=== PATIENT | male | born 1960 | race Caucasian/White ===

== ENCOUNTER 2020-02-18 08:28 | Emergency (ER) | payer MEDICAID ==
[~2020-02-18] VITALS: Ht 188 cm; Wt 70.3 kg
--- NOTE | 2020-02-18 08:35 | NUR ---
came in for lower back pain r/t L lower extremity. to ER bed 9, hooked to monitor. kept comfortable. Dr Galarza at bedside
[2020-02-18] MEDS ORDERED: HYDROCODONE/APAP 5/325MG TABLET ONE (08:52)
[2020-02-18] MEDS ORDERED: predniSONE 20 MG TABLET ONE (08:52)
[2020-02-18] MEDS ORDERED: HYDROCODONE/APAP 5/325MG TABLET PO ONE (09:00)
[2020-02-18] MEDS ORDERED: predniSONE 20 MG TABLET PO ONE (09:00)
--- NOTE | 2020-02-18 09:12 | NUR ---
cotton program technician at bedside
--- NOTE | 2020-02-18 09:33 | NUR ---
Patient discharged to home in stable condition. Written and verbal after care instructions given. Patient verbalizes understanding of instruction. Instructed not to drive
[2020-02-18 09:34] VITALS: BP 121/84
== END 2020-02-18 09:34 | disposition home or self-care (01) ==
LOC: ER 08:33
DX: M54.42 Lumbago with sciatica, left side (principal); R11.0 Nausea
CPT/HCPCS: 72110; 99283; J7512

== ENCOUNTER 2020-02-21 08:18 | Emergency (ER) | payer MEDICAID ==
[~2020-02-21] VITALS: Ht 188 cm; Wt 70.3 kg
--- NOTE | 2020-02-21 08:27 | NUR ---
patient came in to the er c/o left leg pain "sciatica", was here 3 days ago for same reason 03/13 PS. On room air, breathing evenly and unlabored. kept comfortable, will continue to monitor accordingly.
--- NOTE | 2020-02-21 08:37 | NUR ---
seen and evaluated by pooja elizabeth. d/c w/ aci and prescription. discharge in stable condition.
[2020-02-21 08:38] VITALS: BP 145/81
== END 2020-02-21 08:38 | disposition home or self-care (01) ==
LOC: ER 08:21
DX: M54.32 Sciatica, left side (principal)

== ENCOUNTER 2020-02-24 10:24 | Emergency (ER) | payer MEDICAID ==
[~2020-02-24] VITALS: Ht 188 cm; Wt 70.3 kg
[2020-02-24 10:31] VITALS: BP 141/87
== END 2020-02-24 11:03 | disposition home or self-care (01) ==
LOC: ER 10:24
DX: M54.42 Lumbago with sciatica, left side (principal)

== ENCOUNTER 2020-02-27 07:34 | Emergency (ER) | payer MEDICAID ==
[~2020-02-27] VITALS: Ht 188 cm; Wt 72.1 kg
[2020-02-27 07:46] VITALS: BP 11/80
--- NOTE | 2020-02-27 09:14 | NUR ---
Patient discharged to home in stable condition. Written and verbal after care instructions given. Patient verbalizes understanding of instruction.
== END 2020-02-27 09:17 | disposition home or self-care (01) ==
LOC: ER 07:35
DX: M54.42 Lumbago with sciatica, left side (principal); G89.29 Other chronic pain; Z76.0 Encounter for issue of repeat prescription